=== PATIENT | male | born 1980 | race Caucasian/White ===

== ENCOUNTER 2021-09-22 18:21 | Inpatient (IN) | payer OTHER ==
[~2021-09-22] VITALS: Ht 175.3 cm; Wt 80.3 kg
[2021-09-22 19:46] LABS: Hemoglobin 14.8 g/dL (13.5-17.5); Mean Corpuscular Hemoglobin 30.7 pg (28.0-32.0); Mean Corpuscular Hgb Conc. 34.3 g/dL (32.0-36.0); Mean Corpuscular Volume 89.3 fL (80.0-100.0); Red Blood Cells 4.81 10^6/uL (4.5-5.90); Red Cell Distribution Width 13.3 % (11.8-14.3); White Blood Cell 8.4 10^3/uL (4.4-10.8)
[2021-09-22 19:59] LABS: Basophils % (manual) 0 (0.0-2.0); Blast Cells 0; Eosinophils % (manual) 0 (0-7); Metamyelocytes % 0; Myelocytes % 0; Promyelocytes % 0; Reactive Lymphocytes 0
[2021-09-22 20:08] LABS: Calcium 8.2 mg/dL (8.5-10.1); Potassium 4.2 mmol/L (3.5-5.1)
[2021-09-22 20:10] LABS: BUN/Creatinine Ratio 10.4
[2021-09-22 20:13] LABS: Lactic Acid w/Reflex 2.2 mmol/L (0.4-2.0)
[2021-09-22 20:13] LABS: Bilirubin, Total 0.5 mg/dL (0.2-1.0); Total Protein 6.1 g/dL (6.4-8.2)
[2021-09-22 20:53] LABS: Band Neutrophils % (manual) 9; Lymphocytes % (manual) 6 (10.0-50.0); Monocytes % (manual) 6 (0-12)
[2021-09-22] MEDS ORDERED: cefTRIAXone 1GM/50ML D5W 50 ML IV ONE (23:00)
[2021-09-22] MEDS ORDERED: AZITHROMYCIN 250 MG TAB PO ONE (23:00)
[2021-09-22] MEDS ORDERED: REMDESIVIR PER PHARMACY 0 ML IV SCH (23:15)
[2021-09-22] MEDS ORDERED: ONDANSETRON HCL 4 MG/2 ML VIAL IV PRN (23:15)
[2021-09-22] MEDS ORDERED: MORPHINE SULFATE INJECTION 2 MG/ML SYRG IV PRN (23:15)
[2021-09-22] MEDS ORDERED: NITROGLYCERIN 0.4 MG SL TAB SL PRN (23:15)
[2021-09-22] MEDS ORDERED: TEMAZEPAM 15 MG CAP PO PRN (23:15)
[2021-09-23 00:11] LABS: Magnesium 1.9 mg/dL (1.6-2.6)
[2021-09-23 00:20] LABS: CRP High Sensitivity 9.34 mg/dL (< 0.3)
[2021-09-23] MEDS: ACETAMINOPHEN 500 MG TAB PO PRN ×2 (01:16→12:39)
[2021-09-23] MEDS ORDERED: BUPR8MIS SL (01:48)
[2021-09-23 01:58] VITALS: BP 132/78
[2021-09-23 05:00] VITALS: BP 123/73
[2021-09-23 06:51] LABS: Basophils # (auto) 0 10 ^3/uL (0-0.2); Basophils % (auto) 0.4 % (0.0-2.0); Eosinophils # (auto) 0 10 ^3/uL (0-0.8); Eosinophils % (auto) 0.1 % (0.0-7.0); Hematocrit 44.5 % (41.0-53.0); Hemoglobin 15.4 g/dL (13.5-17.5); Lymphocytes # (auto) 0.8 10 ^3/uL (0.4-5.4); Lymphocytes % (auto) 12.3 % (10.0-50.0); Mean Corpuscular Hemoglobin 30.8 pg (28.0-32.0); Mean Corpuscular Hgb Conc. 34.5 g/dL (32.0-36.0); Mean Corpuscular Volume 89.4 fL (80.0-100.0); Monocytes # (auto) 0.5 10 ^3/uL (0-1.3); Monocytes % (auto) 6.9 % (0.0-12.0); Neutrophils # (auto) 5.5 10 ^3/uL (1.6-8.6); Neutrophils % (auto) 80.3 % (37.0-80.0); Nucleated Red Blood Cells % 0.2 %; Red Blood Cells 4.98 10^6/uL (4.5-5.90); Red Cell Distribution Width 13.5 % (11.8-14.3); White Blood Cell 6.9 10^3/uL (4.4-10.8)
[2021-09-23] MEDS ORDERED: REMDESIVIR PER PHARMACY 0 ML IV SCH (07:00)
[2021-09-23 07:04] LABS: Albumin 2.7 g/dL (3.4-5.0); Calcium 8.8 mg/dL (8.5-10.1); Potassium 3.9 mmol/L (3.5-5.1)
[2021-09-23 07:06] LABS: Bilirubin, Total 0.6 mg/dL (0.2-1.0); Total Protein 6.5 g/dL (6.4-8.2)
[2021-09-23 09:00] VITALS: BP 124/76
[2021-09-23] MEDS: DexAMETHasone SOD PHOS 10MG/1ML VIAL INJ IV SCH (10:28)
[2021-09-23] MEDS: CHOLECALCIFEROL (VITD3) 2,000 UNIT CAP/TAB PO SCH (10:28)
[2021-09-23] MEDS: ZINC SULFATE 220mg CAP or TAB PO SCH (10:28)
[2021-09-23] MEDS: ASCORBIC ACID 1,000 MG TAB PO SCH (10:28)
[2021-09-23] MEDS: ENOXAPARIN SOD 40 MG/0.4 ML SYRINGE SC SCH ×2 (10:28→21:21)
[2021-09-23 11:08] LABS: Urine Bacteria NONE SEEN /hpf (None Seen); Urine Blood Negative /uL (Negative); Urine Specific Gravity 1.017 (1.001-1.035); Urine WBC 4 /hpf (0 - 3)
[2021-09-23 12:30] VITALS: BP 123/75
[2021-09-23] MEDS ORDERED: REMDESIVIR 200 MG in NS 210ml LOADING DOSE ADULT IV ONE (15:00)
[2021-09-23 17:00] VITALS: BP 129/80
[2021-09-23] MEDS: cefTRIAXone 1GM/50ML D5W 50 ML IV SCH (21:21)
[2021-09-23] MEDS: ALBUTEROL SULF HFA 90MCG INH 200DOSE IN PRN (21:53)
[2021-09-23] MEDS: AZITHROMYCIN 500MG/ 250ML 250 ML IV SCH (21:57)
[2021-09-23 22:00] VITALS: BP 131/76
[2021-09-24 05:00] VITALS: BP 123/66
[2021-09-24] MEDS: ALBUTEROL SULF HFA 90MCG INH 200DOSE IN PRN ×2 (07:07→23:09)
[2021-09-24 07:31] LABS: Magnesium 2.1 mg/dL (1.6-2.6); Potassium 4.1 mmol/L (3.5-5.1)
[2021-09-24 08:03] LABS: Albumin 2.6 g/dL (3.4-5.0); BUN/Creatinine Ratio 13.3; Bilirubin, Total 0.6 mg/dL (0.2-1.0); CRP High Sensitivity 12.8 mg/dL (< 0.3); Calcium 8.2 mg/dL (8.5-10.1); Total Protein 6.1 g/dL (6.4-8.2)
[2021-09-24 09:00] VITALS: BP 111/55
[2021-09-24] MEDS ORDERED: FUROSEMIDE 20 MG/2 ML VIAL IV SCH (10:00)
[2021-09-24] MEDS: ZINC SULFATE 220mg CAP or TAB PO SCH (10:27)
[2021-09-24] MEDS: DexAMETHasone SOD PHOS 10MG/1ML VIAL INJ IV SCH (10:27)
[2021-09-24] MEDS: ASCORBIC ACID 1,000 MG TAB PO SCH (10:28)
[2021-09-24] MEDS: ENOXAPARIN SOD 40 MG/0.4 ML SYRINGE SC SCH ×2 (10:28→21:01)
[2021-09-24] MEDS: CHOLECALCIFEROL (VITD3) 2,000 UNIT CAP/TAB PO SCH (10:28)
[2021-09-24] MEDS ORDERED: IVERMECTIN 3 MG TAB PO ONE (10:32)
[2021-09-24 13:00] VITALS: BP 108/67
[2021-09-24] MEDS: REMDESIVIR 100mg 100 MG in SODIUM CHL 0.9% 230 ML IV SCH (15:50)
[2021-09-24 17:00] VITALS: BP 110/69
[2021-09-24] MEDS: FUROSEMIDE 20 MG/2 ML VIAL IV SCH (18:28)
[2021-09-24] MEDS: cefTRIAXone 1GM/50ML D5W 50 ML IV SCH (20:12)
[2021-09-24] MEDS: AZITHROMYCIN 500MG/ 250ML 250 ML IV SCH (21:00)
[2021-09-24 22:00] VITALS: BP 119/76
[2021-09-24] MEDS: BUDESONIDE (INHALATION) 180 MCG IH IN SCH (22:09)
[2021-09-25 05:00] VITALS: BP 106/76
[2021-09-25] MEDS: FUROSEMIDE 20 MG/2 ML VIAL IV SCH ×2 (05:14→18:02)
[2021-09-25] MEDS: ALBUTEROL SULF HFA 90MCG INH 200DOSE IN PRN (05:46)
[2021-09-25] MEDS: BUDESONIDE (INHALATION) 180 MCG IH IN SCH ×2 (05:46→22:31)
[2021-09-25 06:20] LABS: Basophils # (auto) 0 10 ^3/uL (0-0.2); Basophils % (auto) 0.2 % (0.0-2.0); Eosinophils # (auto) 0 10 ^3/uL (0-0.8); Hematocrit 47.7 % (41.0-53.0); Hemoglobin 16.3 g/dL (13.5-17.5); Lymphocytes # (auto) 0.8 10 ^3/uL (0.4-5.4); Lymphocytes % (auto) 7.8 % (10.0-50.0); Mean Corpuscular Hemoglobin 30.8 pg (28.0-32.0); Mean Corpuscular Hgb Conc. 34.2 g/dL (32.0-36.0); Mean Corpuscular Volume 89.9 fL (80.0-100.0); Monocytes # (auto) 0.8 10 ^3/uL (0-1.3); Monocytes % (auto) 7.4 % (0.0-12.0); Neutrophils # (auto) 8.8 10 ^3/uL (1.6-8.6); Neutrophils % (auto) 84.6 % (37.0-80.0); Nucleated Red Blood Cells % 0.1 %; Red Cell Distribution Width 13.4 % (11.8-14.3); White Blood Cell 10.5 10^3/uL (4.4-10.8)
[2021-09-25 06:26] LABS: Magnesium 2.1 mg/dL (1.6-2.6); Potassium 4.2 mmol/L (3.5-5.1)
[2021-09-25 08:10] VITALS: BP 111/60
[2021-09-25 09:00] VITALS: BP 111/66
[2021-09-25 09:23] LABS: Calcium 8.5 mg/dL (8.5-10.1); Potassium 4.3 mmol/L (3.5-5.1)
[2021-09-25 09:26] LABS: Bilirubin, Total 0.7 mg/dL (0.2-1.0); Total Protein 6.6 g/dL (6.4-8.2)
[2021-09-25] MEDS: ZINC SULFATE 220mg CAP or TAB PO SCH (09:54)
[2021-09-25] MEDS: DexAMETHasone SOD PHOS 10MG/1ML VIAL INJ IV SCH (09:54)
[2021-09-25] MEDS: CHOLECALCIFEROL (VITD3) 2,000 UNIT CAP/TAB PO SCH (09:54)
[2021-09-25] MEDS: ASCORBIC ACID 1,000 MG TAB PO SCH (09:54)
[2021-09-25] MEDS: IVERMECTIN 3 MG TAB PO SCH (09:55)
[2021-09-25] MEDS: ENOXAPARIN SOD 40 MG/0.4 ML SYRINGE SC SCH ×2 (09:56→21:09)
[2021-09-25] MEDS ORDERED: IOHEXOL 350 MG/ML 100ML IJ ONE (12:24)
[2021-09-25 13:00] VITALS: BP 110/81
[2021-09-25] MEDS: REMDESIVIR 100mg 100 MG in SODIUM CHL 0.9% 230 ML IV SCH (14:46)
[2021-09-25 17:00] VITALS: BP 122/72
[2021-09-25] MEDS: cefTRIAXone 1GM/50ML D5W 50 ML IV SCH (20:11)
[2021-09-25] MEDS: AZITHROMYCIN 500MG/ 250ML 250 ML IV SCH (21:09)
[2021-09-25 22:00] VITALS: BP 115/70
[2021-09-26] MEDS: ALBUTEROL SULF HFA 90MCG INH 200DOSE IN PRN ×3 (00:04→20:25)
[2021-09-26 05:00] VITALS: BP 125/77
[2021-09-26] MEDS: FUROSEMIDE 20 MG/2 ML VIAL IV SCH ×2 (05:12→18:20)
[2021-09-26 06:46] LABS: Albumin 2.9 g/dL (3.4-5.0); Calcium 8.7 mg/dL (8.5-10.1); Potassium 4.7 mmol/L (3.5-5.1)
[2021-09-26 06:49] LABS: BUN/Creatinine Ratio 14.6; Bilirubin, Total 0.8 mg/dL (0.2-1.0); Total Protein 6.3 g/dL (6.4-8.2)
[2021-09-26] MEDS: BUDESONIDE (INHALATION) 180 MCG IH IN SCH ×2 (07:14→19:21)
[2021-09-26 09:00] VITALS: BP 104/55
[2021-09-26] MEDS: DexAMETHasone SOD PHOS 10MG/1ML VIAL INJ IV SCH (10:54)
[2021-09-26] MEDS: ZINC SULFATE 220mg CAP or TAB PO SCH (10:54)
[2021-09-26] MEDS: IVERMECTIN 3 MG TAB PO SCH (10:55)
[2021-09-26] MEDS: ASCORBIC ACID 1,000 MG TAB PO SCH (10:55)
[2021-09-26] MEDS: CHOLECALCIFEROL (VITD3) 2,000 UNIT CAP/TAB PO SCH (10:56)
[2021-09-26] MEDS: ENOXAPARIN SOD 40 MG/0.4 ML SYRINGE SC SCH ×2 (10:57→21:34)
[2021-09-26 13:00] VITALS: BP 111/70
[2021-09-26] MEDS: REMDESIVIR 100mg 100 MG in SODIUM CHL 0.9% 230 ML IV SCH (15:22)
[2021-09-26] MEDS: cefTRIAXone 1GM/50ML D5W 50 ML IV SCH (20:47)
[2021-09-26] MEDS: AZITHROMYCIN 500MG/ 250ML 250 ML IV SCH (21:34)
[2021-09-26 22:00] VITALS: BP 116/64
[2021-09-27 05:00] VITALS: BP 112/70
[2021-09-27] MEDS: FUROSEMIDE 20 MG/2 ML VIAL IV SCH ×2 (05:25→17:57)
[2021-09-27 07:40] VITALS: BP 107/62
[2021-09-27 08:00] LABS: Albumin 2.8 g/dL (3.4-5.0); Calcium 8.9 mg/dL (8.5-10.1); Potassium 4.2 mmol/L (3.5-5.1)
[2021-09-27 08:05] LABS: Bilirubin, Total 0.7 mg/dL (0.2-1.0); Total Protein 6.8 g/dL (6.4-8.2)
[2021-09-27 09:00] VITALS: BP 107/62
[2021-09-27] MEDS: ALBUTEROL SULF HFA 90MCG INH 200DOSE IN PRN ×2 (09:28→21:56)
[2021-09-27] MEDS: BUDESONIDE (INHALATION) 180 MCG IH IN SCH ×2 (09:28→21:56)
[2021-09-27] MEDS: ASPirin 325 MG TAB PO SCH (10:40)
[2021-09-27] MEDS: ASCORBIC ACID 1,000 MG TAB PO SCH (10:41)
[2021-09-27] MEDS: ENOXAPARIN SOD 40 MG/0.4 ML SYRINGE SC SCH ×2 (10:42→21:02)
[2021-09-27] MEDS: CHOLECALCIFEROL (VITD3) 2,000 UNIT CAP/TAB PO SCH (10:42)
[2021-09-27] MEDS: ZINC SULFATE 220mg CAP or TAB PO SCH (10:42)
[2021-09-27] MEDS: DexAMETHasone SOD PHOS 10MG/1ML VIAL INJ IV SCH (10:42)
[2021-09-27] MEDS: IVERMECTIN 3 MG TAB PO SCH (10:43)
[2021-09-27] MEDS: METOPROLOL SUCCINATE XL 50 MG TAB PO SCH (11:08)
[2021-09-27 12:44] LABS: Amphetamine Screen, Urine NEGATIVE (NEGATIVE); Barbiturate Scree,Urine NEGATIVE (NEGATIVE); Benzodiazephine Screen, Urine NEGATIVE (NEGATIVE); Cannabinoid Screen, Urine NEGATIVE (NEGATIVE); Cocaine Screen, Urine NEGATIVE (NEGATIVE); Opiate Scree,Urine NEGATIVE (NEGATIVE); Phencyclidine Screen, Urine NEGATIVE (NEGATIVE)
[2021-09-27 12:51] VITALS: BP 113/62
[2021-09-27] MEDS: REMDESIVIR 100mg 100 MG in SODIUM CHL 0.9% 230 ML IV SCH (15:07)
[2021-09-27 17:00] VITALS: BP 109/75
[2021-09-27] MEDS: cefTRIAXone 1GM/50ML D5W 50 ML IV SCH (20:17)
[2021-09-27] MEDS: AZITHROMYCIN 500MG/ 250ML 250 ML IV SCH (21:01)
[2021-09-27 21:18] VITALS: BP 122/75
[2021-09-28 05:00] VITALS: BP 100/75
[2021-09-28] MEDS: FUROSEMIDE 20 MG/2 ML VIAL IV SCH ×2 (05:24→17:10)
[2021-09-28 06:33] LABS: Albumin 2.6 g/dL (3.4-5.0); Bilirubin, Direct 0.2 mg/dL (0-0.2)
[2021-09-28 06:41] LABS: Bilirubin, Total 0.7 mg/dL (0.2-1.0); CRP High Sensitivity 7.65 mg/dL (< 0.3); Total Protein 6.5 g/dL (6.4-8.2)
[2021-09-28 09:00] VITALS: BP 101/61
[2021-09-28] MEDS: ASPirin 325 MG TAB PO SCH (11:04)
[2021-09-28] MEDS: DexAMETHasone SOD PHOS 10MG/1ML VIAL INJ IV SCH (11:04)
[2021-09-28] MEDS: ZINC SULFATE 220mg CAP or TAB PO SCH (11:05)
[2021-09-28] MEDS: ASCORBIC ACID 1,000 MG TAB PO SCH (11:05)
[2021-09-28] MEDS: METOPROLOL SUCCINATE XL 50 MG TAB PO SCH (11:05)
[2021-09-28] MEDS: CHOLECALCIFEROL (VITD3) 2,000 UNIT CAP/TAB PO SCH (11:05)
[2021-09-28] MEDS: IVERMECTIN 3 MG TAB PO SCH (11:05)
[2021-09-28] MEDS: ENOXAPARIN SOD 40 MG/0.4 ML SYRINGE SC SCH ×2 (11:06→21:11)
[2021-09-28] MEDS: BUDESONIDE (INHALATION) 180 MCG IH IN SCH ×2 (12:00→22:40)
[2021-09-28 13:00] VITALS: BP 101/65
[2021-09-28 16:41] VITALS: BP 110/65
[2021-09-28] MEDS: cefTRIAXone 1GM/50ML D5W 50 ML IV SCH (21:11)
[2021-09-28 22:00] VITALS: BP 111/74
[2021-09-28] MEDS: ALBUTEROL SULF HFA 90MCG INH 200DOSE IN PRN (23:27)
[2021-09-29 05:00] VITALS: BP 106/65
[2021-09-29] MEDS: FUROSEMIDE 20 MG/2 ML VIAL IV SCH ×2 (05:06→18:00)
[2021-09-29 08:00] VITALS: BP 106/65
[2021-09-29 08:58] VITALS: BP 109/69
[2021-09-29] MEDS: DexAMETHasone SOD PHOS 10MG/1ML VIAL INJ IV SCH (09:02)
[2021-09-29] MEDS: ASPirin 325 MG TAB PO SCH (09:02)
[2021-09-29] MEDS: ASCORBIC ACID 1,000 MG TAB PO SCH (09:03)
[2021-09-29] MEDS: METOPROLOL SUCCINATE XL 50 MG TAB PO SCH (09:03)
[2021-09-29] MEDS: ZINC SULFATE 220mg CAP or TAB PO SCH (09:03)
[2021-09-29] MEDS: IVERMECTIN 3 MG TAB PO SCH (09:03)
[2021-09-29] MEDS: CHOLECALCIFEROL (VITD3) 2,000 UNIT CAP/TAB PO SCH (09:04)
[2021-09-29] MEDS: ENOXAPARIN SOD 40 MG/0.4 ML SYRINGE SC SCH ×2 (09:04→20:55)
[2021-09-29 09:32] LABS: Potassium 5.1 mmol/L (3.5-5.1)
[2021-09-29 09:38] LABS: Albumin 2.8 g/dL (3.4-5.0); Bilirubin, Direct 0.3 mg/dL (0-0.2); Magnesium 2.7 mg/dL (1.6-2.6)
[2021-09-29 09:42] LABS: Bilirubin, Total 0.7 mg/dL (0.2-1.0); Total Protein 6.7 g/dL (6.4-8.2)
[2021-09-29] MEDS: BUDESONIDE (INHALATION) 180 MCG IH IN SCH ×2 (10:51→18:39)
[2021-09-29] MEDS: ALBUTEROL SULF HFA 90MCG INH 200DOSE IN PRN ×2 (10:51→18:39)
[2021-09-29 13:00] VITALS: BP 103/60
[2021-09-29 16:55] VITALS: BP 109/70
[2021-09-29] MEDS: cefTRIAXone 1GM/50ML D5W 50 ML IV SCH (20:55)
[2021-09-29 22:00] VITALS: BP 107/68
[2021-09-30 05:00] VITALS: BP 115/81
[2021-09-30] MEDS: ALBUTEROL SULF HFA 90MCG INH 200DOSE IN PRN ×2 (05:54→20:55)
[2021-09-30] MEDS: BUDESONIDE (INHALATION) 180 MCG IH IN SCH ×2 (05:54→20:55)
[2021-09-30] MEDS: FUROSEMIDE 20 MG/2 ML VIAL IV SCH ×2 (06:27→18:58)
[2021-09-30 08:30] VITALS: BP 105/66
[2021-09-30 08:54] LABS: Hepatitis B Surface Antibody Negative (Negative)
[2021-09-30 09:24] LABS: Hepatitis A Total Antibody Positive (Negative)
[2021-09-30 11:19] LABS: Hepatitis C Antibody Negative (Negative)
[2021-09-30] MEDS: ASPirin 325 MG TAB PO SCH (11:26)
[2021-09-30] MEDS: ZINC SULFATE 220mg CAP or TAB PO SCH (11:26)
[2021-09-30] MEDS: DexAMETHasone SOD PHOS 10MG/1ML VIAL INJ IV SCH (11:26)
[2021-09-30] MEDS: ENOXAPARIN SOD 40 MG/0.4 ML SYRINGE SC SCH ×2 (11:27→20:31)
[2021-09-30] MEDS: ASCORBIC ACID 1,000 MG TAB PO SCH (11:27)
[2021-09-30] MEDS: CHOLECALCIFEROL (VITD3) 2,000 UNIT CAP/TAB PO SCH (11:27)
[2021-09-30] MEDS: METOPROLOL SUCCINATE XL 50 MG TAB PO SCH (11:28)
[2021-09-30 12:30] VITALS: BP 115/69
[2021-09-30] MEDS ORDERED: DEX4T PO (15:53)
[2021-09-30] MEDS ORDERED: DOXY-286 PO (15:53)
[2021-09-30] MEDS ORDERED: ZINC220T6 PO (15:53)
[2021-09-30] MEDS ORDERED: ALBUAER3 IN (15:53)
[2021-09-30] MEDS ORDERED: FAMO20TA10 PO (15:53)
[2021-09-30] MEDS ORDERED: ASCO10003 PO (15:53)
[2021-09-30] MEDS ORDERED: CHOL500023 PO (15:53)
[2021-09-30] MEDS ORDERED: METO25TA36 PO (15:53)
[2021-09-30] MEDS ORDERED: ASPI-123 PO (15:53)
[2021-09-30] MEDS ORDERED: BUDE2SUS3 IN (15:53)
[2021-09-30 17:00] VITALS: BP 117/65
[2021-09-30] MEDS: cefTRIAXone 1GM/50ML D5W 50 ML IV SCH (20:31)
[2021-09-30 22:00] VITALS: BP 112/77
[2021-10-01 05:00] VITALS: BP 109/67
[2021-10-01] MEDS: FUROSEMIDE 20 MG/2 ML VIAL IV SCH (05:57)
[2021-10-01 08:38] VITALS: BP 112/67
[2021-10-01 09:36] LABS: Calcium 9.3 mg/dL (8.5-10.1); Potassium 4.4 mmol/L (3.5-5.1)
[2021-10-01 09:43] LABS: BUN/Creatinine Ratio 16.8; Bilirubin, Total 0.9 mg/dL (0.2-1.0); CRP High Sensitivity 4.49 mg/dL (< 0.3); Total Protein 7.8 g/dL (6.4-8.2)
[2021-10-01] MEDS: BUDESONIDE (INHALATION) 180 MCG IH IN SCH (10:00)
[2021-10-01] MEDS: ENOXAPARIN SOD 40 MG/0.4 ML SYRINGE SC SCH (10:00)
[2021-10-01] MEDS: DexAMETHasone SOD PHOS 10MG/1ML VIAL INJ IV SCH (10:08)
[2021-10-01] MEDS: ASPirin 325 MG TAB PO SCH (10:08)
[2021-10-01] MEDS: ZINC SULFATE 220mg CAP or TAB PO SCH (10:08)
[2021-10-01] MEDS: ASCORBIC ACID 1,000 MG TAB PO SCH (10:09)
[2021-10-01] MEDS: METOPROLOL SUCCINATE XL 50 MG TAB PO SCH (10:09)
[2021-10-01] MEDS: CHOLECALCIFEROL (VITD3) 2,000 UNIT CAP/TAB PO SCH (10:10)
[2021-10-01] MEDS: ALBUTEROL SULF HFA 90MCG INH 200DOSE IN PRN (10:50)
[2021-10-01 12:45] VITALS: BP 107/58
== END 2021-10-01 14:45 | disposition home or self-care (01) | DRG 871 ==
LOC: ER 18:25 → TELE 23:06 → TELE-EAST 23:41
PROVIDERS: ADMIT Nurse Practitioner; ATTEND Internal Medicine Pulmonary Disease
PROC: XW033E5 Introduction of Remdesivir Anti-infective into Peripheral Vein, Percutaneous Approach, New Technology Group 5 (ICD-10-PCS; principal; 2021-09-22)
DX: A41.89 Other specified sepsis (principal); J12.82 Pneumonia due to coronavirus disease 2019; J96.01 Acute respiratory failure with hypoxia; U07.1 COVID-19; J98.11 Atelectasis; E55.9 Vitamin D deficiency, unspecified; E66.9 Obesity, unspecified; I48.91 Unspecified atrial fibrillation; D89.839 Cytokine release syndrome, grade unspecified; Z68.26 Body mass index [BMI] 26.0-26.9, adult
CPT/HCPCS: 36415; 36600; 71045; 71275; 80053; 80061; 80076; 80307; 81001; 82306; 82728; 82805; 83605; 83615; 83735; 84132; 84443; 84484; 85007; 85025; 85027; 85379; 86141; 86704; 86706; 86708; 86803; 87040; 87340; 87426; 93005; 93306; 93970; 94640; 96365; 96367; G0378; J0696; J1100